=== PATIENT | male | born 1925 | race Caucasian/White ===

== ENCOUNTER → 2017-02-26 | Outpatient (CLI) | payer MEDICARE | END | disposition home or self-care (01) | LOC: GMAL 10:35 | PROVIDERS: ATTEND Family Medicine | DX: D51.3 Other dietary vitamin B12 deficiency anemia (principal); Z12.5 Encounter for screening for malignant neoplasm of prostate; E55.9 Vitamin D deficiency, unspecified | CPT/HCPCS: 82306; 82607; G0103 ==

== ENCOUNTER 2017-06-03 19:58 | Observation (INO) | payer MEDICARE ==
--- NOTE | 2017-06-03 20:25 | ED.PDOC ---
History of Present Illness - General Chief Complaint: Abdominal Pain Stated Complaint: mid abdomen pain that has been going on all day Time Seen by Provider: 06/03/17 20:22 Information Source: patient, RN notes reviewed, Vital Signs reviewed - History of Present Illness Initial Comments: Patient comes in via private vehicle with c/o of periumbilical abdominal pain for the whole day. Denies other symptoms. No N/V/D. Normal bowel movement this morning. Abdominal Pain Onset Location: periumbilical Pain Radiation: no radiation Quality: moderate, cramping, dull Timing/Duration: 7-24 hours Improving Factors: nothing Worsening Factors: nothing Associated Symptoms: denies symptoms Review of Systems - Review of Systems Constitutional: States: no symptoms reported. Denies: chills, fever, malaise, weakness Respiratory: States: no symptoms reported Cardiology: States: no symptoms reported Gastrointestinal/Abdominal: States: see HPI, abdominal pain. Denies: constipation, diarrhea, nausea, vomiting Genitourinary: States: no symptoms reported Musculoskeletal: States: no symptoms reported Skin: States: no symptoms reported Neurological: States: no symptoms reported All other Systems: No Change from Baseline Family Medical History - Family History Mother Living Status: Physical Exam - Physical Exam General Appearance: Alert, Comfortable, No apparent distress, Well Developed, Well Groomed, Well Hydrated, Well Nourished Neck: supple, normal inspection Respiratory: lungs clear, normal breath sounds, no respiratory distress, no accessory muscle use Cardiovascular/Chest: normal peripheral pulses, regular rate, rhythm, no edema, no gallop, systolic murmur Peripheral Pulses: 2+ Gastrointestinal/Abdominal: soft, no organomegaly, distended, tenderness - periumbilical w/o guarding or rebound, hernia - Umbilical - reducable Extremity: non-tender, normal inspection, no pedal edema Neurologic: alert, normal mood/affect, oriented x 3 Skin Exam: normal color, warm/dry Progress - Progress Progress: 06/03/17 22:36 Discussed results with patient who agrees to admission Discussed with Rosibel Almodovar NP who will admit to hospital - Results/Orders Results/Orders: Laboratory Tests 06/03/17 06/03/17 21:21 21:21 WBC 7.2 RBC 4.30 L Hgb 14.1 Hct 42.4 MCV 98.6 H MCH 32.7 H MCHC 33.3 RDW 14.6 H Plt Count 143 MPV 7.8 Absolute Neuts (auto) 5.40 Absolute Lymphs (auto) 0.80 L Absolute Monos (auto) 0.70 Absolute Eos (auto) 0.10 Absolute Basos (auto) 0.10 Neutrophils % 75.6 Lymphocytes % 11.3 L Monocytes % 10.1 H Eosinophils % 2.0 Basophils % 1.0 Sodium 138 Potassium 3.8 Chloride 105 Carbon Dioxide 27 Anion Gap 9.8 L BUN 12 Creatinine 1.09 BUN/Creatinine Ratio 11.0 Random Glucose 124 H Serum Osmolality 276.9 Calcium 10.4 H Total Bilirubin 0.8 AST 25 ALT 20 Alkaline Phosphatase 58 Serum Total Protein 6.0 L Albumin 3.5 Globulin 2.5 Albumin/Globulin Ratio 1.4 - EKG/XRAY/CT XRAY: abdomen - No acute findings per Radiologist CT Ordered: Yes - Abd/Pel: Ileus vs partial/developing obstrution Departure - Departure Clinical Impression: Ileus, unspecified, Partial bowel obstruction Time of Disposition: 22:35 Disposition: Admit Patient Departure Forms: ED Discharge - Pt. Copy, Patient Portal Self Enrollment Instructions: DI for Abdominal Pain-Adult Referrals: Ron Hurt III, MD [Primary Care Provider] - 1-2 Weeks Home Medications: Ambulatory Orders Amlodipine Besylate [Norvasc] 2.5 mg PO DAILY 06/03/17 Aspirin [Aspirin Childrens] 81 mg PO DAILY 06/03/17 Isosorbide Dinitrate 30 mg PO DAILY 06/03/17 Losartan Potassium 50 mg PO DAILY 06/03/17 Metoprolol Succinate [Metoprolol Succinate ER] 50 mg PO DAILY 06/03/17 Pravastatin Sodium [Pravachol] 20 mg PO DAILY 06/03/17 Decision To Admit - Decistion To Admit Decision to Admit Reason: Admit from ER Decision to Admit Date: 06/03/17 Decision to Admit Time: 22:34
--- NOTE | 2017-06-03 21:10 | RAD ---
EXAM DESCRIPTION: Abdomen Series CLINICAL HISTORY: 89 years Male ,Mid epigastric pain and distention COMPARISON: None. TECHNIQUE: Frontal view chest x-ray and two views of the abdomen. FINDINGS: Cardiac enlargement. Retroaortic density consistent with hiatal hernia. There is a small amount of adjacent left basilar atelectasis. Aorta is mildly tortuous. No free air is identified beneath the hemidiaphragms. No dilated loops of bowel to suggest obstruction. Bony demineralization. Suspect moderate compression at L1 and L2 likely chronic. IMPRESSION: No acute process noted Moderately large hiatal hernia with left basilar atelectasis Electronically signed by: Anju Sumner 06/03/2017 9:08 PM CDT
--- NOTE | 2017-06-03 22:26 | CT ---
EXAM DESCRIPTION: Abdomen/Pelvis w/Contrast CLINICAL HISTORY: 89 years Male Periumbilical pain distension COMPARISON: None. TECHNIQUE: Contiguous axial images obtained through the abdomen and pelvis following IV contrast. Reformatted images obtained. This exam was performed according to our department optimization program which includes automated exposure control, adjustment of the mA and/or kv according to patient size and/or use of iterative reconstruction technique. FINDINGS: Moderately large hiatal hernia with left basilar atelectasis. No acute abnormality of the liver. The spleen and pancreas appear unremarkable. No adrenal masses. The kidneys appear unremarkable. No hydronephrosis. The gallbladder is present with numerous calculi. No wall thickening is noted. No aneurysmal dilatation of the aorta. Diffuse vascular calcification. There is moderate fecal material in the colon. Diverticulosis without evidence of diverticulitis. There is mild fluid-filled distention of multiple loops of small bowel without definite zone of transition. Findings may reflect mild ileus and/or enteritis. The possibility of developing obstruction is not excluded. Recommend continued follow-up. There is a small amount of free fluid in the abdomen. There are fat-containing inguinal hernias bilaterally also containing a small amount of fluid. Ventral hernia in the midline containing fat. The appendix is unremarkable. IMPRESSION: There is mild fluid-filled distention of loops of small bowel without definite evidence of obstruction. Findings may reflect ileus or enteritis. Developing or partial obstruction not entirely excluded. Recommend continued follow-up There is a small amount of stranding and edema within the mesentery and a small amount of free fluid Moderate fecal material in the colon Large hiatal hernia Cholelithiasis Diverticulosis Electronically signed by: Anju Sumner 06/03/2017 10:25 PM CDT
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
[2017-06-04] MEDS ORDERED: SODIUM CHLORIDE 0.9% (FLUSH) 10 ML SYG IV PRN (00:37)
[2017-06-04] MEDS ORDERED: IV SET AND CAP CHANGE INJ INJ SCH (01:00)
[2017-06-04] MEDS: PANTOPRAZOLE SODIUM IV 40 MG VIAL IV SCH (01:18)
[2017-06-04] MEDS: KCL 20MEQ/D5 1/2NS 1,000 ML IVS PRN ×3 (01:20→20:39)
--- NOTE | 2017-06-04 09:51 | RAD ---
EXAM DESCRIPTION: Abdomen Flat Upright CLINICAL HISTORY: 89 years Male, abd pain COMPARISON: June 03, 2017 0829 hours FINDINGS: Supine and upright views of the abdomen show an unremarkable bowel gas pattern. No free intraperitoneal air is observed. Contrast media in the urinary bladder. Cardiomegaly and large hiatal hernia. Degenerative changes in scoliosis of the spine. IMPRESSION: Cardiomegaly Hiatal hernia Electronically signed by: Chuck Parsons MD 06/04/2017 9:49 AM CDT
[2017-06-04] MEDS ORDERED: BISACODYL SUPPOSITORY 10 MG PR ONE (11:38)
[2017-06-04] MEDS ORDERED: MAGNESIUM HYDROXIDE 30 ML UD PO ONE (11:38)
[2017-06-04] MEDS ORDERED: HYDROCORTISONE 25 MG SUPPOSITORY ONE (12:34)
[2017-06-04] MEDS ORDERED: ASPIRIN (CHEWABLE) 81 MG TAB ONE (12:34)
[2017-06-04] MEDS ORDERED: amLODIPine BESYLATE 5 MG TAB ONE (12:35)
[2017-06-04] MEDS: METOPROLOL SUCCINATE XL 50 MG TAB PO SCH (12:39)
--- NOTE | 2017-06-04 13:19 | CONS ---
DATE OF CONSULTATION: 06/04/17 REFERRING PHYSICIAN: Hospitalist service/Mayito Campa MD HISTORY OF PRESENT ILLNESS: The patient is an 89-year-old male who was admitted through the Emergency Room last night with a diagnosis of abdominal pain, possible ileus versus early obstruction and cholelithiasis. The history is that the patient developed abdominal pain generally in the mid abdomen yesterday morning. It did not significantly worsen, but did not improve. It was crampy in nature. There was no fever or chills. A bowel movement yesterday did not help his symptoms, so he presented to the Emergency Room and was therefore admitted. He had no nausea or vomiting associated with this, no blood in his stool or melanotic stool. He denies fatty food intolerance. There is no history of hepatitis or jaundice. PAST MEDICAL HISTORY: 1. Hypertension. 2. Known abdominal aortic aneurysm. 3. Bilateral inguinal hernias. PAST SURGICAL HISTORY: 1. Bilateral inguinal hernia repairs. 2. Ventral hernia repair. 3. Umbilical hernia repair. CURRENT MEDICATIONS: 1. Amlodipine. 2. Aspirin. 3. Isosorbide. 4. Losartan. 5. Metoprolol. 6. Pravastatin. ALLERGIES: NO KNOWN DRUG ALLERGIES. FAMILY HISTORY: Noncontributory. SOCIAL HISTORY: He is and live with his here in [place]. He is retired. REVIEW OF SYSTEMS: Noncontributory except as in the history of present illness. The patient does believe that his abdomen is distended. PHYSICAL EXAMINATION: GENERAL: The patient is awake, alert, cooperative, in no acute distress. VITAL SIGNS: The patient is currently afebrile, normotensive. HEENT: Sclerae nonicteric. Mucous membranes moist. NECK: Without adenopathy. CHEST: Equal breath sounds bilaterally. HEART: Holosystolic blowing murmur, but a regular rhythm. ABDOMEN: Soft, distended, nontender. He has mild tenderness around the umbilicus, but no palpable discrete hernia. He does have inguinal hernias bilaterally. He has a diastasis recti. RECTAL: Deferred. EXTREMITIES: Without cyanosis, clubbing or edema. The patient is wearing a support stocking on his left lower leg. LABORATORY: White blood cell count this morning is 5.7, hemoglobin 13.7, platelet count 129,000, normal differential. Potassium 4.1, creatinine 1.0, blood sugar 114 this morning. Liver function tests within normal limits. CT scan as noted revealed dilated loops of small bowel, large amount of stool in the colon, moderate fluid within the small bowel and a small amount of free fluid, but no free air and no discrete transition point for dilation of the bowel. ASSESSMENT: 1. Mild abdominal pain, probable obstipation versus early bowel obstruction. PLAN: Milk of Magnesia and Dulcolax suppositories in attempt to resolve these issues. We will follow the patient along with the hospitalist service, Dr. Campa. #[id number] [facility]
[2017-06-04] MEDS: HYDROCORTISONE 25 MG SUPPOSITORY PR SCH ×2 (15:04→20:35)
[2017-06-04] MEDS ORDERED: amLODIPine BESYLATE 5 MG TAB PO SCH (18:00)
[2017-06-04] MEDS ORDERED: ASPIRIN (CHEWABLE) 81 MG TAB PO SCH (18:00)
[2017-06-04] MEDS ORDERED: LOSARTAN POTASSIUM 25 MG TAB ONE (19:19)
[2017-06-04] MEDS: LOSARTAN POTASSIUM 25 MG TAB PO SCH (20:35)
[2017-06-05] MEDS: PANTOPRAZOLE SODIUM IV 40 MG VIAL IV SCH (01:01)
[2017-06-05] MEDS: KCL 20MEQ/D5 1/2NS 1,000 ML IVS PRN (06:24)
[2017-06-05] MEDS: METOPROLOL SUCCINATE XL 50 MG TAB PO SCH (08:51)
[2017-06-05] MEDS: LOSARTAN POTASSIUM 25 MG TAB PO SCH (08:52)
[2017-06-05] MEDS: HYDROCORTISONE 25 MG SUPPOSITORY PR SCH (08:52)
[2017-06-05] MEDS ORDERED: ISOSORBIDE DINITRATE 5 MG TAB PO SCH (09:00)
[2017-06-05 10:07] VITALS: TEMP 99.5; O2SAT 98
[2017-06-05 10:51] VITALS: BP 107/67
--- NOTE | 2017-06-05 10:52 | DS ---
DISCHARGE DIAGNOSIS: 1. Acute abdominal pain, showing improvement. 2. History of chronic fecal impaction with obstipation, acutely exacerbated resulting and probably contributing to the underlying abdominal pain with resolution and improvement after having several bowel movements in the hospital. 3. Cholelithiasis, yet no evidence of cholecystitis at this time and no history of of food intolerance, requiring dietary intervention and close followup. 4. History of bradycardia, to have further followup with cardiology clinic. 5. History of significant ventral hernia. 6. Cardiac murmur suggesting aortic stenosis with cardiac clinic followup. 7. Chronic hemorrhoids with initial treatment with suppositories initiated and showing some clinical improvement. HISTORY OF PRESENT ILLNESS: This 89-year-old, white male was placed in the hospital for observation because of significant abdominal discomfort located primarily in the lower aspects of the abdomen. No nausea or vomiting or blood in the stools was noted. He does have decreased appetite. He has had problems with constipation in the past. He was seen in consultation by Dr. Conti who has done surgery on him in the past for abdominal hernias. He was treated with some Milk of Magnesia as well as rectal Dulcolax suppositories to assist with removal of some of the significant fecal impaction noted on radiographic studies. The patient showed fairly significant improvement with diminishment to the point of having no abdominal pain and feeling much improved to the point that he was willing to continue with outpatient therapy and management. LABORATORY: White count normal at 5,700, hemoglobin 13.7 with 68% neutrophils. Chemistries show potassium 4.1, kidney function normal, BUN 10, creatinine 1 , glucose 114, albumin 3.0. Urinalysis showed a trace of hematuria, otherwise clear. Stool guaiacs on two testing specimens were negative. No cultures obtained. RADIOLOGY: X-ray including plain film x-rays failed to show any significant intraabdominal problems other than the presence of moderate amount of fecal stasis. Abdominopelvic CT exam showed cholelithiasis with the gallbladder full of stones, a fairly large hiatal hernia with fecal stasis evident. There was fluid-filled distention of loops of small bowel without definite evidence of obstruction. HOSPITAL COURSE: The patient was feeling much improved after four or five bowel movements were recorded. The patient was very willing to continue with outpatient management at the time of his discharge . PLAN: We will continue his current home medications to which are added MiraLAX 17 grams daily, Milk of Magnesia a dose as needed weekly to help prevent constipation as well as Anusol HC suppositories 1 to 2 a day to assist with the hemorrhoid problem. He is encouraged to stay on a low fat diet to prevent any type of stimulation to the gallbladder. He will have followup with Dr. Hurt and Dr. Conti if not improving. Dr. Hurt will help have the cardiology clinic followup on his bradycardia, but also determine his cardiac risk if surgery is needed on an emergent basis in the future. He will kneel down with his head down and raise his bottom and press with cold compresses to help reduce hemorrhoids if they become a problem. Return if not improving. [facility][id number] [facility]
== END 2017-06-05 11:55 | disposition home or self-care (01) ==
LOC: ER 19:58 → MS 23:19
PROVIDERS: ADMIT Emergency Medicine; ATTEND Emergency Medicine
DX: R10.13 Epigastric pain (principal); K59.09 Other constipation; K80.20 Calculus of gallbladder without cholecystitis without obstruction; R00.1 Bradycardia, unspecified; K43.9 Ventral hernia without obstruction or gangrene; R01.1 Cardiac murmur, unspecified; K64.8 Other hemorrhoids; I10 Essential (primary) hypertension; I71.4 Abdominal aortic aneurysm, without rupture; I25.2 Old myocardial infarction; K44.9 Diaphragmatic hernia without obstruction or gangrene; K57.30 Diverticulosis of large intestine without perforation or abscess without bleeding; I51.7 Cardiomegaly; Z79.82 Long term (current) use of aspirin; Z79.899 Other long term (current) drug therapy; Z95.5 Presence of coronary angioplasty implant and graft; Z96.653 Presence of artificial knee joint, bilateral; Z87.891 Personal history of nicotine dependence; Z82.49 Family history of ischemic heart disease and other diseases of the circulatory system
CPT/HCPCS: 36415 ×2; 74010; 74020; 74177; 80053 ×2; 81001; 82270 ×2; 85025 ×2; 94760 ×3; 96374; 96376; 99284; G0378; J1700 ×3